=== PATIENT | female | born 1935 | race Caucasian/White ===

== ENCOUNTER 2021-04-24 10:09 | Day surgery (SDC) | payer MEDICARE ==
[~2021-04-24 10:09] MED LIST: Lactated Ringers 1,000 ML IV SCH; Lidocaine 1%/Sod Bicarbonate in NS 8.4% 1 ML Syringe IDERM PRN; Sodium Chloride 0.9% 10 ML Syringe FLUSH PRN; Sodium Chloride 0.9% 10 ML Syringe FLUSH SCH
[2021-04-24] MEDS: oxyCODONE ER 10 MG TAB.ER PO SCH ×2 (10:17→10:30)
[2021-04-24] MEDS: Acetaminophen 325 MG Tab PO SCH ×2 (10:17→10:30)
[2021-04-24] MEDS: Pregabalin 25 MG Cap PO SCH ×2 (10:17→10:30)
[2021-04-24] MEDS ORDERED: Lactated Ringers 1,000 ML ONE (11:31)
[2021-04-24] MEDS ORDERED: ceFAZolin 1 GM Vial ONE (11:31)
[2021-04-24] MEDS ORDERED: Propofol 200 MG/20 ML SDV ONE (11:31)
[2021-04-24] MEDS ORDERED: fentaNYL 100 MCG/2 ML SDV ONE (11:32)
[2021-04-24] MEDS ORDERED: Rocuronium 50 MG/5 ML Vial ONE (13:12)
[2021-04-24] MEDS ORDERED: HYDROmorphone 0.5 MG/0.5 ML Syringe ONE ×2 (13:16→13:44)
[2021-04-24] MEDS ORDERED: fentaNYL 250 MCG/5 ML SDV ONE (13:16)
[2021-04-24] MEDS ORDERED: ePHEDrine 50 MG/ML SDV ONE (13:31)
[2021-04-24] MEDS ORDERED: Ondansetron 4 MG/2 ML SDV ONE (14:12)
[2021-04-24] MEDS: Vancomycin 1 GM SDV ONE ×2 (14:17→14:22)
[2021-04-24] MEDS: Morphine 8 MG, EPINEPHrine 0.3 MG, Cefuroxime 750 MG, Ketorolac 30 MG, Sodium Chloride ... PRN ×10 (14:17→14:22)
[2021-04-24] MEDS ORDERED: Ondansetron 4 MG/2 ML SDV IVPUSH PRN (15:01)
[2021-04-24] MEDS ORDERED: HYDROmorphone 0.5 MG/0.5 ML Syringe IVPUSH PRN (15:01)
[2021-04-24] MEDS ORDERED: fentaNYL 100 MCG/2 ML SDV IVPUSH PRN (15:01)
== END 2021-04-24 17:11 | disposition home or self-care (01) ==
LOC: JD.SDS 10:09
PROVIDERS: ATTEND Orthopaedic Surgery
DX: M16.11 Unilateral primary osteoarthritis, right hip (principal); E03.9 Hypothyroidism, unspecified; E55.9 Vitamin D deficiency, unspecified; I10 Essential (primary) hypertension; R73.03 Prediabetes; Z90.49 Acquired absence of other specified parts of digestive tract; Z98.890 Other specified postprocedural states; Z79.899 Other long term (current) drug therapy; Z88.2 Allergy status to sulfonamides; Z88.5 Allergy status to narcotic agent
CPT/HCPCS: 27130; 73501; 97110; 97116; 97161; A9270; C1713; C1776; J0171; J0690; J0697; J1170; J1885; J2270; J2370; J2405; J2704; J2710; J3010; J3370; J7120; 01214; 99100